=== PATIENT | female | born 1960 | race Caucasian/White ===

== ENCOUNTER 2017-10-27 15:38 | Outpatient (RCR) | payer OTHER | END 2017-11-22 | LOC: PT 15:38 | PROVIDERS: ATTEND Specialist | DX: S83.281A Other tear of lateral meniscus, current injury, right knee, initial encounter (principal); M24.661 Ankylosis, right knee; M62.81 Muscle weakness (generalized) ==

== ENCOUNTER → 2019-08-16 | Day surgery (SDC) | payer OTHER ==
--- NOTE | 2019-08-12 13:30 | Diagnostic Imaging Report ---
Chest, PA and lateral. History: Preoperative evaluation for surgery. Comparison: None available. Discussion: The cardiomediastinal silhouette and pulmonary vasculature are within normal limits. The lungs are clear without evidence of consolidation or effusion. There are no acute osseous abnormalities. IMPRESSION: No radiographic evidence of acute cardiopulmonary abnormality. Signed by: Aaron Yates MD on 08/12/2019 1:27 PM
[~2019-08-16] MED LIST: AIMOVIG INJ; BACITRACIN 50,000 UNIT VIAL ONE; BUPIVACAINE HCL 0.5% INJ 30 ML VIAL INJ ONE; CALCIUM PO; CEFAZOLIN SOD 1 GM VIAL ONE; CEFAZOLIN SOD 1 GM/NS 50ML 50 ML IV ONE; COQ-10100 MG PO; DEXAMETHASONE SOD PHOS INJ 4 MG/ML VIAL ONE; EFFEXOR XR 3737.5 MG PO; EXCEDRIN MIGRA1 EAC3 PO; FENTANYL CITRATE/PF 100MCG/2 ML INJ ONE; GINKGO BILOBA40 MG PO; IRON PO; LIDOCAINE HCL 2% LOCAL INJ 5 ML SDV VIAL INJ ONE; MAGNESIUM PO; MIDAZOLAM HCL 2 MG/2 ML VIAL ONE; MULTIVITAMINS1 EAC7 PO; ONDANSETRON HCL INJ 2MG/ML 2ML 2 MG/ML VIAL ONE; POTASSIUM PO; PROPOFOL IV EMULSION 10 MG/ML 20 ML VIAL ONE; SEVOFLURANE INHAL SOLN 250 ML PEN BTL ONE; SUMATRIPTAN SUC25 MG PO; VITAMIN B12-FO1 EACH PO
--- OUTSIDE RECORDS SUMMARY | 2019-08-16 05:09 | XMS REPORT ---
Author Author [facility] Address Unknown Phone Unavailable Care Team Providers Care Advanced Clinical Specialist Name Role Phone Melvin JUARES Unavailable Unavailable Alisha GONZALEZ Unavailable Unavailable Problems This patient has no known problems. Allergies, Adverse Reactions, Alerts This patient has no known allergies or adverse reactions. Medications This patient has no known medications. Results Test Description Test Time Test Comments Text Results Atomic Results Result Comments CHEST 2 VIEWS 2019-08-12 13:26:00 [place] [address] Patient Name: IDALIA MCDUFFIE MR #: [id number] : 1960 Age/Sex: 59/F Req #: [id number] Adm Physician: Ordered by: Melvin JUARES DPM Report #: [id number] Location: OR Room/Bed: Procedure: [id number] DX/CHEST 2 VIEWS Exam Date: Exam Time: REPORT STATUS: Signed Chest, PA and lateral. History: Preoperative evaluation for surgery. Comparison: None available. Discussion: The cardiomediastinal silhouette and pulmonary vasculature are within normal limits. The lungs are clear without evidence of consolidation or effusion. There are no acute osseous abnormalities. IMPRESSION: No radiographic evidence of acute cardiopulmonary abnormality. Signed by: Aaron Pringle MD on 08/12/2019 1:27 PM Dictated By: AARON PRINGLE MD 1327 Transcribed By: AMISH on 08/12/197 COPY TO: Melvin JUARES DPM MRI RIGHT KNEE WO [place] [address] Patient Name: IDALIA MCDUFFIE MR #: [id number] : 1960 Age/Sex: 57/F Req #: [id number] Adm Physician: Ordered by: ALIYAH GONZALEZ MD Report #: [id number] Location: MRI Room/Bed: Procedure: [id number] MRI/MRI RIGHT KNEE WO Exam Date: 10/06/17 Exam Time: 1640 REPORT STATUS: Signed TECHNIQUE: Magnetic resonance imaging of the RIGHT KNEE was performed WITHOUT injected contrast. HISTORY: Fall, meniscal tear COMPARISON: None available. FINDINGS: LIGAMENTS AND TENDONS: ACL: Intact PCL: Intact Collateral ligaments: Intact Iliotibial band: Unremarkable Popliteal tendon: Intact Extensor mechanism: Intact JOINT: Menisci: Medial: Minimal free margin attenuation and peripheral extrusion. Lateral: Complex tearing of the free margin and peripheral extrusion of the remaining meniscus. Articular Cartilage: Medial Compartment: No focal defect. Lateral Compartment: Low-grade erosion and fibrillation of the weightbearing cartilage. Patellofemoral Compartment: Foci of high-grade to full-thickness patellar erosions and fibrillation. Joint Fluid: The amount of fluid within the joint is within physiologic limits. BONES: No focal or infiltrative bone marrow replacing abnormality. No acute fracture. SOFT TISSUES: Small volume of fluid within the prepatellar bursa. Mild diffuse soft tissue edema. IMPRESSION: 1. Patellofemoral and lateral compartment predominant degenerative changes, including degenerative tearing of the free margin of the lateral meniscus. The provided history does raise the possibility of an acute on chronic tear. 2. Mild prepatellar bursitis. Signed by: Dr. Chasity Mccarty M.D. on 10/07/2017 10:16 AM Dictated By: CHASITY MCCARTY DO 1016 Transcribed By: AMISH on 10/07/17 1016 COPY TO: ALIYAH GONZALEZ MD MAMMOGRAPHY DIGITAL SCR BILAT [place] [address] Patient Name: IDALIA MCDUFFIE MR #: [id number] : 1960 Age/Sex: 57/F Req #: [id number] Adm Physician: Ordered by: ALIYAH GONZALEZ MD Report #: [id number] Location: MAMMO Room/Bed: Procedure: [id number] MG/MAMMOGRAPHY DIGITAL SCR BILAT Exam Date: 09/03/17 Exam Time: 1316 REPORT STATUS: Signed #[id number] - MGSCRBIL #BILATERAL DIGITAL SCREENING MAMMOGRAM WITH CAD: 09/03/2017 CLINICAL: Routine screening. Comparison is made to exams dated: 04/11/2016 mammogram and 07/26/2014 mammogram - [facility]. Current study contains 4 films. There are scattered fibroglandular elements in both breasts. Current study was also evaluated with a Computer Aided Detection (CAD) system. There is a mole marker on the left breast. No significant masses, calcifications, or other findings are seen in either breast. There has been no significant interval change. IMPRESSION: BENIGN There is no mammographic evidence of malignancy. A 1 year screening mammogram is recommended. The patient will be notified by letter of the results. Reimazin hatch/rc:09/08/2017 12:06:48 Trim Sawyer: Aura PEREZ)(Alisha), [facility] letter sent: Compared to Prior B9 Mammogram BI-RADS: 2 Benign Dictated By: REI MALONEY DO 1206 Transcribed By: RC on 09/08/17 1206 COPY TO: ALIYAH GONZALEZ MD
[2019-08-16 08:25] VITALS: BP 103/71
--- NOTE | 2019-08-16 14:10 | Operative Report ---
DATE OF PROCEDURE: 08/16/2019 SURGEON: Fermin Fletcher DPM PREOPERATIVE DIAGNOSIS: Right hallux rigidus. POSTOPERATIVE DIAGNOSIS: Right hallux rigidus. PLANNED PROCEDURE: Right Kahn bunionectomy with implant. SURGEON: Sugey Vides DPM (Charley). COUNSELLING PSYCHOLOGIST: Fermin Fletcher DPM. ANESTHESIA: General with a postoperative block consisting of 15 mL 0.5% Marcaine plain mixed with 1 mL of dexamethasone phosphate. HEMOSTASIS: Pneumatic thigh tourniquet set at 350 mmHg for a total time of approximately 30 minutes. MATERIALS: One size 2 [id number] toe reference implant, 2-0 Vicryl, 3-0 Vicryl, and 4-0 nylon. ESTIMATED BLOOD LOSS: Less than 10 mL. PATHOLOGY: None. PROCEDURE NOTE: The patient was seen in the preoperative waiting room, where the correct procedure and site was identified. The patient was brought to the operating room and placed on the operating table in the supine position. General anesthesia was initiated. At this time, a well-padded pneumatic tourniquet was placed about the patient's right thigh. The right foot, ankle, and leg was then scrubbed, prepped, and draped in the usual aseptic manner. The right foot, ankle, and leg was exsanguinated with an Esmarch bandage and the pneumatic thigh tourniquet was inflated to 350 mmHg for a total time of approximately 30 minutes. Attention was directed to the right 1st metatarsophalangeal joint, where a 5 cm linear incision made directly over the joint medial to the extensor hallucis longus tendon. The incision was carried through the subcutaneous tissue them from deep or underlying structures. All vital and neurovascular structures were identified, retracted medial and lateral, and all bleeders were cauterized or ligated as deemed necessary. At this time, attention was directed to the 1st interspace through the same incision. A full lateral release was performed consisting of deep transverse metatarsal ligament, lateral collateral ligament as well as the fibular sesamoidal ligament. The hallux was then put through range of motion and found to be functioning in more proper anatomic alignment. Next, attention was directed back to the 1st metatarsophalangeal joint, where a linear capsulotomy was performed. Utilizing sagittal saw, the medial eminence, dorsal and lateral eminence were all resected and passed off to the back table. Next, utilizing a sagittal saw, the base of the proximal phalanx was resected and passed off to the back table as well as the distal articular cartilage of the 1st metatarsal head. Next, utilizing technetium application analyst protocol, a guidewire was placed into the 1st metatarsal and was reamed per application analyst protocol to the metatarsal head. A second guidewire was placed in the proximal phalanx and again reamed as well. Next, grommets were placed. Attempt into proper location was confirmed via intraoperative fluoroscopy. The implant was then placed and the toe was found to be functioning in good anatomic alignment. The wound was then copiously irrigated with sterile saline mixed with bacitracin. Capsule and deep tissue reapproximated with 2-0 Vicryl, subcutaneous tissue with 3-0 Vicryl, and the skin was closed using a running interlocking stitch of 4-0 nylon. The right foot was then dressed with Adaptic, 4x4s, Kerlix, Bret wrap, and a postop shoe. The patient tolerated the procedure and anesthesia well. The patient was transferred to the postoperative recovery with vital signs stable and vascular status intact. The patient was monitored there for a short a period of time before being sent home with the following written and oral instructions: 1. Keep the dressing clean, dry, and intact. 2. The patient is to remain partial weightbear in a postop shoe to avoid excessive ambulation until being seen in the office. 3. The patient was given the office number and instructed to contact us if any problems arise. FREDDIE Gunderson/JAMES /[id number]
== END | disposition home or self-care (01) ==
LOC: OR 05:00
PROVIDERS: ATTEND Podiatrist Foot & Ankle Surgery
DX: M20.21 Hallux rigidus, right foot (principal); Z88.8 Allergy status to other drugs, medicaments and biological substances; Z01.810 Encounter for preprocedural cardiovascular examination; Z01.811 Encounter for preprocedural respiratory examination; K29.70 Gastritis, unspecified, without bleeding
CPT/HCPCS: 28291; 71046; 93005; J0690 ×2; J1100; J2001; J2250; J2405; J2704; J3010; L8642